=== PATIENT | male | born 1970 | race Caucasian/White ===

== ENCOUNTER 2019-06-21 07:23 | Observation (INO) | payer BC, SELFPAY ==
[2019-06-21] VITALS (8 sets, daily range): BP systolic 105–122; BP diastolic 68–74; PULSE 74–86; RESP 16–18; TEMP 36.7–37.3; O2SAT 93–98; BMI 22.2
--- NOTE | 2019-06-21 07:38 | CT_ITS ---
WS: [id number] CT abdomen pelvis w con* [id number] REASON FOR EXAM: RLQ pain IV CONTRAST ADMINISTERED: Omnipaque 300 95 mL. TOTAL EXAM DLP: 513.[address] scans at [facility] use at least one of these dose optimization techniques: automat ed exposure control; mA and/or kV adjustment per patient size (includes targeted exams where dose is matched to clinical indication); or iterative reconstruction. FINDINGS: The lower lungs and mediastinum were normal. The liver shows normal attenuation changes no abnormalities are seen. The gallbladder was normal no stones are noted. The spleen was normal. The stomach adrenal glands pancreas were normal. In the proximal right ureter there is evidence of a calcified density nonobstructing the ureter. Everardo ured 7.49 mm. The right kidney was normal there is a small benign cysts in the right periphery of the kidney. Aorta shows heavy arteriosclerotic changes. The iliac arteries show heavy arteriosclerotic findings. There is mild thickening of small bowel suggesting low-grade ileus findings. A calcified density is seen in the appendix area consistent with a fecalith of the appendix. There is no inflammatory changes surrounding the appendix. The urinary bladder was normal. Prostate shows concretions The anorectal area was normal. There is no inguinal hernias. CT/CT abdomen pelvis w con* [id number] IMPRESSION: Calcified density in the appendix suggesting a fecalith but no definite inflamm atory changes. A calcification is seen in the pelvis of the left kidney but no obstructive zulma nges. This measured 7.49 mm. And is consistent with a stone. Low-grade ileus changes mid abdomen.
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
[2019-06-21 08:01] LABS: Basophils # 0.1 10^3/uL (0.0-0.1); Basophils % 0.2 %; Hematocrit 38.5 % (42.0-52.0); Hemoglobin 13.1 g/dL (11.7-16.6); Lymphocytes % 4.1 %; Mean Corpuscular Hemoglobin 31.2 pg (28.0-34.0); Mean Corpuscular Volume 91.7 fL (80-94); Mean Platelet Volume 10.3 fL (7.4-10.4); Monocytes # 1.1 10^3/uL (0.2-0.9); Monocytes % 4.4 %; Neutrophils # 22.1 10^3/uL (1.8-7.7); Neutrophils % 90.8 %; Nucleated Red Blood Cells % 0 %; Platelet Count 219 10^3/cmm (130-400); Red Cell Distribution Width 13.3 % (12.1-15.1); White Blood Count 24.3 10^3/uL (4.0-10.0)
[2019-06-21 08:15] LABS: Alanine Aminotransferase 10 U/L (0-41); Albumin Level 4.4 g/dL (3.5-5.2); Alkaline Phosphatase 61 IU/L (40-130); Anion Gap 18.1 (5-19); Aspartate Amino Transferase 17 U/L (0-40); Blood Urea Nitrogen 14 mg/dL (6-20); Calcium 8.8 mg/dL (8.5-10.5); Carbon Dioxide 24 mmol/L (22-29); Chloride 97 mmol/L (98-107); Globulin 2.6 g/dL (1.3-4.6); Glomerular Filtration Rate 79.1 mL/min (90-130); Glucose 134 mg/dL (65-115); Lipase 11 U/L (13-60); Osmolality Calculated 278 mOsm/kg (285-295); Potassium 4.1 mmol/L (3.5-5.1); Sodium 135 mmol/L (136-145); Total Bilirubin 0.4 mg/dL (0.15-1.2)
[2019-06-21] MEDS: morphine 4 mg/mL SDV 1 mL IVP ×2 (08:19→10:44)
[2019-06-21] MEDS: ondansetron 2 mg/ML SDV 2 mL 4 MG IVP (08:20)
[2019-06-21] MEDS: sodium chloride 0.9% 1,000 ML 999 ML IV (08:21)
--- NOTE | 2019-06-21 08:25 | PC.NURSE ---
patient to ct
[2019-06-21] MEDS: iohexol 300 mg/mL 100 mL Btl IV (08:33)
[2019-06-21] MEDS: metroNIDAZOLE IV 500 MG/100 ML PREMIX 100 MG IV ×2 (09:05→16:42)
[2019-06-21 09:32] LABS: Bilirubin Urine Neg (NEGATIVE); Blood Urine Neg (Negative); Glucose Urine UA Norm (Normal); Ketones Urine 1+ (Negative); Leukocyte Esterase Urine Negative (Negative); Nitrate Urine Negative (Negative); Protein Urine Neg (Negative); Sulfosalicylic Acid Urine Negative (Negative); Urine Appearance Clear (CLEAR); Urine Color Yellow (Yellow); Urobilinogen Urine Norm (Negative); pH Urine 9 (5-7)
[2019-06-21 09:34] LABS: Bacteria Urine TRACE; Calcium Oxalate Crystals Urine 0-4 /hpf; Mucus Urine TRACE
[2019-06-21 09:35] LABS: Add Urine Culture? No
[2019-06-21] MEDS: ciprofloxacin 400 MG/200 ML PREMIX 200 MG IV ×2 (10:55→21:13)
--- NOTE | 2019-06-21 11:10 | PC.NURSE ---
dr dia in room for evaluation and patient will be admitted
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
[2019-06-21] MEDS: morphine 4 mg/mL SDV 1 mL 2 MG IVP (12:27)
[2019-06-21] MEDS: lactated ringers 1,000 ML 150 ML IV ×2 (12:28→21:13)
[2019-06-21 12:55] LABS: Basophils % 0.2 %; Hematocrit 36.2 % (42.0-52.0); Hemoglobin 12.2 g/dL (11.7-16.6); Lymphocytes # 0.8 10^3/uL (0.8-4.8); Lymphocytes % 4.4 %; Mean Corpuscular HGB Conc 33.7 g/dL (30.0-36.0); Mean Corpuscular Hemoglobin 31.3 pg (28.0-34.0); Mean Corpuscular Volume 92.8 fL (80-94); Monocytes # 0.7 10^3/uL (0.2-0.9); Neutrophils # 15.9 10^3/uL (1.8-7.7); Neutrophils % 90.8 %; Nucleated Red Blood Cells % 0 %; Platelet Count 188 10^3/cmm (130-400); Red Cell Distribution Width 13.5 % (12.1-15.1); White Blood Count 17.6 10^3/uL (4.0-10.0)
[2019-06-21] MEDS: HYDROcodone-acetaminophen 5-325 mg Tablet 1 TAB PO ×2 (16:41→22:42)
[2019-06-21] MEDS: famotidine 20 mg/2 mL INJ IVP (17:50)
[2019-06-22] VITALS: BP 105/66; PULSE 70; RESP 20; TEMP 36.8; O2SAT 97
[2019-06-22 04:00] VITALS: BP 121/80; PULSE 81; RESP 18; TEMP 36.7; O2SAT 94
[2019-06-22] MEDS: famotidine 20 mg/2 mL INJ IVP (04:02)
[2019-06-22] MEDS: metroNIDAZOLE IV 500 MG/100 ML PREMIX 100 MG IV ×2 (04:02→09:16)
[2019-06-22] MEDS: HYDROcodone-acetaminophen 5-325 mg Tablet 1 TAB PO (05:14)
[2019-06-22 06:03] LABS: Basophils % 0.3 %; Eosinophils # 0.2 10^3/uL (0.0-0.8); Eosinophils % 1.3 %; Hematocrit 40.2 % (42.0-52.0); Hemoglobin 13.2 g/dL (11.7-16.6); Lymphocytes # 0.7 10^3/uL (0.8-4.8); Lymphocytes % 5.1 %; Mean Corpuscular HGB Conc 32.8 g/dL (30.0-36.0); Mean Corpuscular Hemoglobin 30.8 pg (28.0-34.0); Mean Corpuscular Volume 93.7 fL (80-94); Mean Platelet Volume 10.1 fL (7.4-10.4); Monocytes # 0.8 10^3/uL (0.2-0.9); Monocytes % 5.9 %; Neutrophils # 11.7 10^3/uL (1.8-7.7); Nucleated Red Blood Cells % 0 %; Platelet Count 195 10^3/cmm (130-400); Red Blood Count 4.29 10^6/uL (4.1-5.3); Red Cell Distribution Width 13.6 % (12.1-15.1); White Blood Count 13.4 10^3/uL (4.0-10.0)
[2019-06-22] MEDS: lactated ringers 1,000 ML 150 ML IV (06:06)
[2019-06-22 06:22] LABS: Anion Gap 16.1 (5-19); Blood Urea Nitrogen 11 mg/dL (6-20); Calcium 9.5 mg/dL (8.5-10.5); Carbon Dioxide 25 mmol/L (22-29); Chloride 102 mmol/L (98-107); Glomerular Filtration Rate 79.1 mL/min (90-130); Glucose 107 mg/dL (65-115); Osmolality Calculated 285 mOsm/kg (285-295); Potassium 4.1 mmol/L (3.5-5.1); Sodium 139 mmol/L (136-145)
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
[2019-06-22 07:22] VITALS: BP 121/80; PULSE 81; RESP 18; TEMP 36.7; O2SAT 94
[2019-06-22 07:34] VITALS: BP 128/80; PULSE 74; RESP 18; TEMP 36.7; O2SAT 95
== END 2019-06-22 10:40 | disposition home or self-care (01) ==
LOC: ER 10:15 → MEDSURG 10:57
PROVIDERS: Physician Assistant; Admitting Provider Surgery; Emergency Provider Family Medicine; Family Provider Nurse Practitioner; PCP Nurse Practitioner; Visit Provider Surgery
DX: R10.9 Unspecified abdominal pain (principal); I10 Essential (primary) hypertension; F17.210 Nicotine dependence, cigarettes, uncomplicated
CPT/HCPCS: 12345; 36415; 74177; 80048; 80053; 81001; 83605; 83690; 85025; 87040; 96361; 96365; 96366; 96367; 96368; 96375; 99283; 99285; G0378; J0690; J0744; J2270; J2405; J3490; J7030; Q9967; S0030

== ENCOUNTER → 2020-09-15 11:52 | Outpatient (BNVA) | payer BC, SELFPAY | PROVIDERS: Family Provider Nurse Practitioner; PCP Nurse Practitioner | DX: R06.2 Wheezing (principal); R06.02 Shortness of breath; Z20.822 Contact with and (suspected) exposure to COVID-19 | CPT/HCPCS: 87635 ==

== ENCOUNTER 2020-12-13 08:51 | Inpatient (IN) | payer BC, SELFPAY ==
[2020-12-13] VITALS (11 sets, daily range): BP systolic 104–136; BP diastolic 71–94; PULSE 72–109; RESP 16–20; TEMP 36.2–36.9; O2SAT 95–98; BMI 17.2
--- NOTE | 2020-12-13 09:29 | XRR_ITS ---
PROCEDURE INFORMATION: Exam: XR Chest Exam date and time: 12/13/2020 9:29 AM Age: 49 years old Clinical indication: Cough and dyspnea; Patient HX: Nausea, cough, fatigue. Patient indicated that nipple piercings are not removalble. ; Additional info: Dyspnea/cough TECHNIQUE: Imaging protocol: XR of the chest. Views: 1 view. COMPARISON: CT abdomen pelvis w con* [id number] 06/21/2019 8:28 AM FINDINGS: Lungs: There is a noncalcified, irregular soft tissue opacity in the posteromedial left lower lobe. Both yolanda are prominent in size and this may be due to adenopathy though the mediastinum is not widened. Pleural spaces: Suspect trace left pleural effusion. No right pleural effusion. No pneumothorax. Heart/Mediastinum: The heart is not enlarged. Bones/joints: Old, healed left clavicular fracture. XR/XR chest 1V portable [id number] IMPRESSION: Left lower lobe soft tissue opacity. Differential diagnosis includes malignancy as well as a round pneumonia . Recommend CT CHEST with IV contrast. Radiation Dose CTDIVOL = (mGy): DLP = (mGy-cm)
--- NOTE | 2020-12-13 09:30 | ECG_ITS ---
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
[2020-12-13] MEDS: ondansetron 2 mg/ML SDV 2 mL 4 MG IVP ×2 (10:00→11:00)
[2020-12-13] MEDS: sodium chloride 0.9% 1,000 ML 999 ML IV ×2 (10:02→10:58)
--- NOTE | 2020-12-13 10:03 | CT_ITS ---
WS: [id number] CT CHEST, ABDOMEN, AND PELVIS TECHNIQUE: Contrast-enhanced CT of the chest, abdomen, and pelvis with coronal and sagittal reformatt ed images. CLINICAL INFORMATION: weightloss, dyspnea, abd pain COMPARISON: CT June 21, 2019 DLP: 1039.[address] scans at [facility] use at least one of these dose optimization techniques: automated e xposure control; mA and/or kV adjustment per patient size (includes targeted exams where dose is matc hed to clinical indication); or iterative reconstruction. CT CHEST: Partial collapse left lower lobe with diffuse narrowing of the left mainstem bronchus with circumfere ntial soft tissue mass compatible with neoplasm. Low-attenuation enhancing left hilar mass. Associate d bulky bilateral hilar lymphadenopathy. Anterior mediastinal lymphadenopathy. Narrowing of the left main pulmonary artery due to soft tissue mass. Small left pleural effusion. Small nonspecific semisol id opacities throughout the right lung may be infectious or inflammatory or neoplastic. Scattered haz y opacities within the left lower lobe and left upper lobe with interstitial thickening in the left l ower lobe. Scattered noncalcified nodules largest right lower lobe measuring 5 to 6 mm. Right middle lobe subpleural nodule measuring 6 mm. Numerous additional small solid nodules about the right hilum and along the fissures. CT ABDOMEN AND PELVIS: Hepatomegaly. Diffuse fatty infiltration of the liver. Numerous peripheral enhancing metastatic lesio ns the largest in the right hepatic lobe measuring 4 CM. Normal portal vein and splenic vein. Additio nal numerous low-attenuation peripheral enhancing lesions involving the pancreas also suspicious for metastatic disease. Peripheral enhancing left adrenal nodule measuring 2.1 cm suspicious for metastat ic disease. This is new since June 21, 2019. No hydronephrosis in either kidney. A few small renal cys ts. Additional low-attenuation right adrenal nodule measuring 2.3 CM. Normal caliber abdominal aorta. Upper abdominal and periaortic lymphadenopathy. Urine distended bladder. Normal sigmoid colon. A few diverticuli. No inguinal lymphadenopathy. Normal thoracic spine. Disc space narrowing lumbar spine wo rse at L4-[address] with end[address] degenerative changes. [address]/CT chest abd pel w con* IMPRESSION: 1. Large confluent low-attenuation left hilar mass with partial collapse left lower lobe compatible with left hilar neoplasm. 2. Bulky anterior mediastinal and bilateral hilar lymphadenopathy. 3. Additional small nodules and semisolid opacities throughout both lungs susp icious for metastatic disease. 4. Diffuse hepatic metastasis. 5. Bilateral adrenal metastasis. 6. Additional low-attenuation lesions in the pancreas suspicious for pancreati c metastasis. 7. Upper abdominal and periaortic lymphadenopathy. 8. Urine distended bladder. Notified Jamarcus Kevin DO at 12/13/2020 11:19 AM.
[2020-12-13 10:22] LABS: Basophils # 0.2 10^3/uL (0.0-0.1); Basophils % 1.3 %; Eosinophils % 0.1 %; Hematocrit 35.6 % (42.0-52.0); Hemoglobin 12.5 g/dL (11.7-16.6); Lymphocytes # 1.3 10^3/uL (0.8-4.8); Lymphocytes % 10.2 %; Mean Corpuscular HGB Conc 35.1 g/dL (30.0-36.0); Mean Corpuscular Hemoglobin 27.8 pg (28.0-34.0); Mean Corpuscular Volume 79.1 fl (80-94); Mean Platelet Volume 8.6 fL (7.4-10.4); Monocytes # 0.8 10^3/uL (0.2-0.9); Monocytes % 6.4 %; Neutrophils % 80.8 %; Nucleated Red Blood Cells % 0 %; Platelet Count 526 10^3/cmm (130-400); Red Cell Distribution Width 12.9 % (12.1-15.1)
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
[2020-12-13] MEDS: iohexol 300 mg/mL 100 mL Btl IV (10:31)
[2020-12-13 10:43] LABS: Alanine Aminotransferase 30 U/L (0-41); Albumin Level 3.7 g/dL (3.5-5.2); Alkaline Phosphatase 196 IU/L (40-130); Anion Gap 20.8 (5-19); Aspartate Amino Transferase 44 U/L (0-40); Blood Urea Nitrogen 6 mg/dL (6-20); Calcium 9.3 mg/dL (8.5-10.5); Carbon Dioxide 23 mmol/L (22-29); Chloride 73 mmol/L (98-107); Creatine Phosphokinase 138 U/L (39-308); Globulin 3.7 g/dL (1.3-4.6); Glomerular Filtration Rate 226.8 mL/min (90-130); Glucose 124 mg/dL (65-115); Osmolality Calculated 233 mOsm/kg (285-295); Potassium 4.8 mmol/L (3.5-5.1); Total Bilirubin 0.3 mg/dL (0.15-1.2); Total Protein 7.4 g/dL (6.6-8.7)
[2020-12-13 10:45] LABS: Sodium 112 mmol/L (136-145)
[2020-12-13 10:58] LABS: Lipase 769 U/L (13-60)
[2020-12-13] MEDS: morphine 4 mg/mL SDV 1 mL IVP ×3 (11:01→20:32)
[2020-12-13 12:22] LABS: Add Urine Microscopic? NO; Charge for UA Resulting for Rev
[2020-12-13 12:26] LABS: Glucose Urine UA Norm (Normal); Protein Urine Neg (Negative); Urine Appearance Clear (CLEAR); Urine Color Straw (Yellow); pH Urine 7 (5-7)
[2020-12-13 12:27] LABS: Bilirubin Urine Neg (Negative); Blood Urine Neg (Negative); Ketones Urine 1+ (Negative); Leukocyte Esterase Urine Negative (Negative); Nitrate Urine Negative (Negative); Urobilinogen Urine Norm (Negative)
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
--- NOTE | 2020-12-13 13:22 | PC.NURSE ---
Bladder scan completed at this time with >999mls of urine.
--- NOTE | 2020-12-13 13:26 | CT_ITS ---
WS: [id number] CT HEAD TECHNIQUE: Noncontrast CT of the head obtained from the skullbase to the vertex. CLINICAL INFORMATION: severe hyponatremia COMPARISON: None. DLP: 834.[address] scans at [facility] use at least one of these dose optimization techniques: automated e xposure control; mA and/or kV adjustment per patient size (includes targeted exams where dose is matc hed to clinical indication); or iterative reconstruction. FINDINGS: Low-attenuation change with slight increased soft tissue density in the right parietal lobe at the ve rtex. Findings are nonspecific but suspicious for underlying metastatic disease considering clinical history. This can be further evaluated with MRI. Normal ventricular system. No hydrocephalus. No othe r suspicious findings. Paranasal sinuses and mastoid air cells well aerated. CT/CT head wo con* [id number] IMPRESSION: 1. Low-attenuation change in the right parietal lobe at the vertex with increa sed soft tissue density suspicious for metastatic disease considering clinical history. This can be further evaluated with MRI without and with gadolinium 2. No hydrocephalus or midline shift. 3. No other significant findings. Notified Akbar Grant MD at 12/13/2020 2:25 PM.
--- NOTE | 2020-12-13 14:19 | PC.NURSE ---
Pt refused to have a catheter put in. Provider notified.
[2020-12-13 14:27] LABS: Cortisol Random 22.07 ug/dL (2.47-19.5); Thyroid Stimulating Hormone 4.23 uIU/mL (0.27-4.20)
[2020-12-13 14:49] LABS: Estmated Average Glucose 114; Hemoglobin A1C 5.6 % (4.0-6.0)
[2020-12-13] MEDS: sodium chloride 0.9% 1,000 ML 50 ML IV (15:41)
[2020-12-13 16:01] LABS: Hepatitis A Antibody IgM Non-Reactive (Nonreactive); Hepatitis B Core IgM Non-Reactive (Nonreactive); Hepatitis B Surface Antigen Non-Reactive (Nonreactive); Hepatitis C Virus Antibody Non-Reactive (Nonreactive)
[2020-12-13 16:39] LABS: Anion Gap 17.2 (5-19); Blood Urea Nitrogen 5 mg/dL (6-20); Calcium 8.4 mg/dL (8.5-10.5); Carbon Dioxide 23 mmol/L (22-29); Chloride 84 mmol/L (98-107); Glomerular Filtration Rate 226.8 mL/min (90-130); Glucose 90 mg/dL (65-115); Osmolality Calculated 247 mOsm/kg (285-295); Potassium 4.2 mmol/L (3.5-5.1); Sodium 120 mmol/L (136-145)
[2020-12-13 16:47] LABS: Potassium, Radom Urine 8 mmol/L; Urine Random Sodium 20 mmol/L
--- NOTE | 2020-12-13 16:50 | PC.NURSE ---
Emptied 1200 ml of urine from carroll.
[2020-12-13 16:56] LABS: Urine Random Chloride 18 mmol/L
[2020-12-13] MEDS: ALPRAZolam 0.5 mg Tablet PO (19:25)
[2020-12-13] MEDS: pantoprazole DR 40 mg Tablet PO (19:25)
[2020-12-13] MEDS: heparin 5,000 unit/mL INJ 1 mL 5000 UNIT SUBCUT (19:25)
[2020-12-13] MEDS: docusate sodium 100 mg Capsule PO (19:25)
[2020-12-13] MEDS: HYDROcodone-acetaminophen 5-325 mg Tablet 1 TAB PO ×2 (19:25→23:48)
--- NOTE | 2020-12-13 19:30 | PC.NURSE ---
Called and gave report to Marietta SAMANO
--- NOTE | 2020-12-13 21:02 | PC.NURSE ---
ADMIT NOTE Pt received to floor at 2041 via [employer]. walked to bed. Is alert and oriented. c/o pain all over but andrés in abdomen. Had pain meds in ER recently. IV patent and infusing without difficulty. House in place. Urine sl pink tinged. Says he has lost 40 lbs in last 3 months. Has been having SOB and prod cough of brown chunky sputum. Is aware of mass in lungs & liver. VS check done and oriented to room. Siderails padded and sx set up for sz precautions. RN to complete admission assessment
[2020-12-13] MEDS: lisinopril 5 mg Tablet PO (21:15)
[2020-12-13] MEDS: tizanidine 4 mg Tablet PO (21:15)
[2020-12-13] MEDS: mirtazapine 15 mg Tablet PO (21:15)
[2020-12-13 22:16] LABS: Blood Urea Nitrogen 6 mg/dL (6-20); Calcium 8.6 mg/dL (8.5-10.5); Carbon Dioxide 24 mmol/L (22-29); Chloride 87 mmol/L (98-107); Glomerular Filtration Rate 226.8 mL/min (90-130); Glucose 104 mg/dL (65-115); Osmolality Calculated 254 mOsm/kg (285-295); Sodium 123 mmol/L (136-145)
[2020-12-13] MEDS: albuterol 8 gm MDI 2 PUFF INHALATION (23:35)
[2020-12-14] VITALS (7 sets, daily range): BP systolic 103–119; BP diastolic 70–79; PULSE 98–111; RESP 16–18; TEMP 36.6–36.8; O2SAT 96–97
[2020-12-14] MEDS: morphine 4 mg/mL SDV 1 mL IVP ×2 (03:15→08:42)
--- NOTE | 2020-12-14 03:21 | PC.NURSE ---
prn pain medication admin per mar for primary nurse.
[2020-12-14] MEDS: HYDROcodone-acetaminophen 5-325 mg Tablet 1 TAB PO ×2 (05:44→12:39)
[2020-12-14 06:19] LABS: Basophils # 0.2 10^3/uL (0.0-0.1); Basophils % 1.2 %; Eosinophils % 0.2 %; Hematocrit 33.5 % (42.0-52.0); Hemoglobin 11.5 g/dL (11.7-16.6); Lymphocytes # 1.2 10^3/uL (0.8-4.8); Lymphocytes % 8.7 %; Mean Corpuscular HGB Conc 34.3 g/dL (30.0-36.0); Mean Corpuscular Volume 81.7 fl (80-94); Mean Platelet Volume 8.8 fL (7.4-10.4); Monocytes # 1.1 10^3/uL (0.2-0.9); Monocytes % 7.8 %; Neutrophils # 11.15 10^3/uL (1.8-7.7); Neutrophils % 80.5 %; Nucleated Red Blood Cells % 0 %; Platelet Count 519 10^3/cmm (130-400); Red Cell Distribution Width 13.2 % (12.1-15.1); White Blood Count 13.9 10^3/uL (4.0-10.0)
[2020-12-14] MEDS: heparin 5,000 unit/mL INJ 1 mL 5000 UNIT SUBCUT (06:24)
[2020-12-14 06:42] LABS: Alanine Aminotransferase 26 U/L (0-41); Albumin Level 3.2 g/dL (3.5-5.2); Alkaline Phosphatase 168 IU/L (40-130); Anion Gap 17.5 (5-19); Aspartate Amino Transferase 29 U/L (0-40); Blood Urea Nitrogen 5 mg/dL (6-20); Calcium 8.4 mg/dL (8.5-10.5); Carbon Dioxide 24 mmol/L (22-29); Chloride 86 mmol/L (98-107); Globulin 2.7 g/dL (1.3-4.6); Glomerular Filtration Rate 226.8 mL/min (90-130); Glucose 93 mg/dL (65-115); Osmolality Calculated 253 mOsm/kg (285-295); Potassium 4.5 mmol/L (3.5-5.1); Sodium 123 mmol/L (136-145); Total Bilirubin 0.2 mg/dL (0.15-1.2); Total Protein 5.9 g/dL (6.6-8.7)
--- NOTE | 2020-12-14 06:50 | PC.NURSE ---
SHIFT SUMMARY Has rested for intervals. Has received pain meds of po Hydrocodone and IV Morphine several times. c/o abd and back pain andrés but says is actually pretty much all over. Has had jello, juice and lemon port gamble soda to drink without c/o nausea. House draining well. Continues to talk of just wanting to be comfortable and says he knows he is dying.
--- NOTE | 2020-12-14 07:27 | PC.NURSE ---
AM NOTE SITTING UP ON SIDE OF BED - ATTEMPTED MRI SCREEN DUE TO SCHEDULED MRI TODAY - PT IS RELUCTANT TO REMOVE ALEIDA NIPPLE RINGS [facility] [facility] - PER THIS NURSE TO STEP OUT AND GIVE PT PRIVACY TO DECIDE TO PROCEED WITH TEST
[2020-12-14] MEDS: ALPRAZolam 0.5 mg Tablet PO ×2 (08:35→12:01)
[2020-12-14] MEDS: sodium chloride 0.9% 1,000 ML 75 ML IV (08:38)
[2020-12-14] MEDS: albuterol 8 gm MDI 2 PUFF INHALATION (09:08)
--- NOTE | 2020-12-14 10:37 | PC.NURSE ---
MRI PT TAKEN OFF FLOOR TO MRI VIA AMBULANCE CREW - PT AGAIN HESITANT TO REMOVE NIPPLE RINGS - CREW AWAITING PT TO REMOVE AND AWARE OF SITUATION
[2020-12-14] MEDS: gadobenate dimeglumine 20 mL vial IV (11:03)
--- NOTE | 2020-12-14 12:02 | PC.NURSE ---
RETURN TO ROOM PT RETURNED TO ROOM - C/O INCREASED ANXIETY - DR CHACON NOTIFIED - ORDER TO GIVE 1500 XANAX - DONE PER THIS NURSE
[2020-12-14] MEDS: dexamethasone 4 mg Tablet PO (12:36)
[2020-12-14 12:46] LABS: Anion Gap 15.5 (5-19); Blood Urea Nitrogen 5 mg/dL (6-20); Calcium 8.8 mg/dL (8.5-10.5); Carbon Dioxide 26 mmol/L (22-29); Chloride 85 mmol/L (98-107); Glomerular Filtration Rate 226.8 mL/min (90-130); Glucose 102 mg/dL (65-115); Osmolality Calculated 251 mOsm/kg (285-295); Potassium 4.5 mmol/L (3.5-5.1); Sodium 122 mmol/L (136-145)
--- NOTE | 2020-12-14 13:13 | P.DS_ITS ---
Discharge Providers Date of Admission: 12/13/20 12:15 Date of Discharge: December 14, 2020 Attending Provider at Admission: Akbar Grant MD Attending Provider at Discharge: Akbar Grant MD Primary Care Provider: Vladimir Núñez MD Diagnoses at Discharge Discharge Diagnosis (1) Hyponatremia: Status: Acute (2) Abdominal pain: Status: Resolved Permanent problem details: Likely related to his widespread metastatic disease noted in liver, pancreas Check hepatitis panel Pain control Clear liquid diet (3) Chronic back pain: Status: Acute (4) Hypertension: Status: Acute (5) GERD (gastroesophageal reflux disease): Status: Acute (6) Tobacco dependency: Status: Acute (7) COPD (chronic obstructive pulmonary disease): Status: Acute (8) Anxiety and depression: Status: Acute Reason for Visit Reason for Visit: NAUSEA/CHRONIC COUGH/SORENESS Hospital Course Hospital Course Toro is a 49-year-old white male who presented to the hospital with complaints of pain in his abdomen, nausea, as well as weight loss. He was found to have a sodium significantly low at 112. Imaging demonstrated left hilar mass, with what appeared to be significant metastatic load in his liver, pancreas, adrenal glands. CT head suggested tumor as well. He was given saline initially secondary to his appearance of dehydration and history of vomiting. Sodium corrected overnight by, and the following day he was placed on salt tablets. MRI head demonstrated multiple lesions consistent with metastasis, with some edema surrounding a 9 mm lesion right parietal vertex. Dexamethasone was initiated at 4 mg twice daily. The day the MRI came back, second day of hospital stay, patient related he was going home. He reported he felt better, had less abdominal pain. He was able to ambulate around the room. A House had been placed the night before secondary to urinary retention noted on initial CT scan on admission, at which time he had initially refused House. I discussed with him his widespread malignancy, including brain metastasis. I discussed his widespread malignancy with his as well. Patient reported that he would like to be discharged home, and would go against advice if he was not discharged. I talked with him about the risks and benefits of discharge including significant worsening. He reported that with his current diagnosis he was focused only on quality of life currently and that would be best at home. I initiated consultations for liver biopsy for diagnosis in the next 3 to 5 days as well as follow-up with oncology. He will also need to see his primary care provider for repeat sodium in 2 to 3 days. Fluid restriction was described, and prescription of salt tablets. Discussed dexamethasone which was added. Reviewed with him the reasons behind this as well. We will keep House catheter in at discharge, and have him follow-up with urology. Flomax initiated. This i s secondary to urinary retention. Overall prognosis is poor which I discussed with patient's as well as patient. Physical Exam Narrative: EXAM NARRATIVE: General exam is alert and oriented x3, conversive knowledgeable and demonstrates understanding Neck is supple Cardiovascular regular rate and rhythm Lungs clear but with diminished breath sounds left side Abdomen is soft. Slight tenderness epigastric area. Extremities no cyanosis clubbing or edema Urinary Catheter Management^: House: Cath Placed During This Visit: no Reason for Continuing Indwelling Catheter: Acute Urinary Retention or Obstruction Discharge Data Data Completed and Pending: Completed Studies During Hospitalization Category Date Time Status CT chest abd pel w con* Stat Cat Scan 12/13/20 10:[address] head wo con* [id number] Routine Cat Scan 12/13/20 13:26 Completed XR chest 1V vera ble [id number] Stat Exams 12/13/20 09:29 Completed MR head wo/w con [id number] Routine MRI 12/14/20 19:06 Completed Pending at discharge Category Date Time Status Osmolality Urine Routine Lab 12/13/20 15:30 Received Labs from last 24 hours 12/14/20 12/14/20 12/14/20 12:12 05:00 05:00 WBC 13.9 H RBC 4.10 Hgb 11.5 L Hct 33.5 L MCV 81.7 MCH 28.0 MCHC 34.3 RDW 13.2 Plt Count 519 H MPV 8.8 Neut % (Auto) 80.5 Lymph % (Auto) 8.7 [place] % (Auto) 7.8 Eos % (Auto) 0.2 Baso % (Auto) 1.2 Neut # (Auto) 11.15 H Lymph # (Auto) 1.2 [place] # (Auto) 1.1 H Eos # (Auto) 0.0 Baso # (Auto) 0.2 H Nucleated RBC % (a uto) 0 Nucleated RBCs # 0.0 Sodium 122 L 123 L Potassium 4.5 4.5 Chloride 85 L 86 L Carbon Dioxide 26 24 Anion Gap 15.5 17.5 BUN 5 L 5 L Creatinine 0.4 L 0.4 L GFR Calculation 226.8 H 226.8 H Glucose 102 93 Estimat Average Gl ucose Hemoglobin A1c Calculated Osmolal ity 251 L 253 L Calcium 8.8 8.4 L Total Bilirubin 0.2 AST 29 ALT 26 Alkaline Phosphata se 168 H Total Protein 5.9 L D Albumin 3.2 L Globulin 2.7 TSH Random Cortisol Urine Osmolality Ur Random Sodium Ur Random Potassiu m Ur Random Chloride Hepatitis A IgM Ab Hep Bs Antigen Hep B Core IgM Ab Hepatitis C Antibo dy 12/13/20 12/13/20 12/13/20 21:45 15:30 15:26 WBC RBC Hgb Hct MCV MCH MCHC RDW Plt Count MPV Neut % (Auto) Lymph % (Auto) [place] % (Auto) Eos % (Auto) Baso % (Auto) Neut # (Auto) Lymph # (Auto) [place] # (Auto) Eos # (Auto) Baso # (Auto) Nucleated RBC % (a uto) Nucleated RBCs # Sodium 123 L 120 L Potassium 5.0 4.2 Chloride 87 L 84 L Carbon Dioxide 24 23 Anion Gap 17.0 17.2 BUN 6 5 L Creatinine 0.4 L 0.4 L GFR Calculation 226.8 H 226.8 H Glucose 104 90 Estimat Average Gl ucose Hemoglobin A1c Calculated Osmolal ity 254 L 247 L Calcium 8.6 8.4 L Total Bilirubin AST ALT Alkaline Phosphata se Total Protein Albumin Globulin TSH Random Cortisol Urine Osmolality Pending Ur Random Sodium Ur Random Potassiu m Ur Random Chloride Hepatitis A IgM Ab Hep Bs Antigen Hep B Core IgM Ab Hepatitis C Antibo dy 12/13/20 12/13/20 12/13/20 11:57 10:10 10:10 WBC RBC Hgb Hct MCV MCH MCHC RDW Plt Count MPV Neut % (Auto) Lymph % (Auto) [place] % (Auto) Eos % (Auto) Baso % (Auto) Neut # (Auto) Lymph # (Auto) [place] # (Auto) Eos # (Auto) Baso # (Auto) Nucleated RBC % (a uto) Nucleated RBCs # Sodium Potassium Chloride Carbon Dioxide Anion Gap BUN Creatinine GFR Calculation Glucose Estimat Average Gl ucose Hemoglobin A1c Calculated Osmolal ity Calcium Total Bilirubin AST ALT Alkaline Phosphata se Total Protein Albumin Globulin TSH 4.23 H Random Cortisol 22.07 H Urine Osmolality Ur Random Sodium 20 Ur Random Potassiu m 8 Ur Random Chloride 18 Hepatitis A IgM Ab Non-reactive Hep Bs Antigen Non-reactive Hep B Core IgM Ab Non-reactive Hepatitis C Antibo dy Non-reactive 12/13/20 10:10 WBC RBC Hgb Hct MCV MCH MCHC RDW Plt Count MPV Neut % (Auto) Lymph % (Auto) [place] % (Auto) Eos % (Auto) Baso % (Auto) Neut # (Auto) Lymph # (Auto) [place] # (Auto) Eos # (Auto) Baso # (Auto) Nucleated RBC % (a uto) Nucleated RBCs # Sodium Potassium Chloride Carbon Dioxide Anion Gap BUN Creatinine GFR Calculation Glucose Estimat Average Gl ucose 114 Hemoglobin A1c 5.6 Calculated Osmolal ity Calcium Total Bilirubin AST ALT Alkaline Phosphata se Total Protein Albumin Globulin TSH Random Cortisol Urine Osmolality Ur Random Sodium Ur Random Potassiu m Ur Random Chloride Hepatitis A IgM Ab Hep Bs Antigen Hep B Core IgM Ab Hepatitis C Antibo dy Vitals: Last Vital Signs Temp 97.8 F 12/14/20 08:00 Pulse 98 12/14/20 09:09 Resp 18 12/14/20 09:09 BP 119/79 12/14/20 08:00 Pulse Ox 97 12/14/20 09:09 Discharge Plan Discharge Patient Disposition: Home Condition: Stable Prescriptions: New oxycodone 10 mg tablet 10 mg PO Q4H PRN (Reason: pain) Qty: 20 RF: 0 sennosides [Senna Lax] 8.6 mg Tablet 17.2 mg PO BEDTIME Qty: 30 RF: 0 ondansetron HCl [Zofran] 4 mg tablet 4 mg PO Q8H PRN (Reason: nausea and vomiting) Qty: 20 RF: 0 tamsulosin [Flomax] 0.4 mg capsule 0.4 mg PO DAILY Qty: 30 RF: 0 docusate sodium 100 mg Capsule 100 mg PO BID Qty: 60 RF: 0 pantoprazole 40 mg Tablet,Delayed Release (Dr/Ec) 40 mg PO BID Qty: 60 RF: 0 dexamethasone 4 mg Tablet 4 mg PO BID Qty: 60 RF: 0 sodium chloride 1 gram Tablet 1 g PO BID Qty: 60 RF: 0 Continued albuterol sulfate 2.5 mg /3 mL (0.083 %) solution for nebulization 2.5 mg inhalation QID PRN (Reason: shortness of breath or wheezing) Qty: 75 RF: 0 (DME) nebulizer accessories Kit See Rx Instructions .Route Qty: 1 RF: 0 (DME) compressor, for nebulizer Device See Rx Instructions .Route Qty: 1 RF: 0 tizanidine 4 mg tablet 4 mg PO DAILY PRN (Reason: muscle spasms) RF: 0 alprazolam 0.5 mg tablet 0.5 mg PO TID RF: 0 lisinopril 5 mg tablet 5 mg PO QPM RF: 0 mirtazapine 15 mg tablet 15 mg PO BEDTIME RF: 0 albuterol sulfate 90 mcg/actuation HFA aerosol inhaler 2 puff INHALATION QID PRN (Reason: Shortness Of Breath) RF: 0 Spiriva Respimat 1.25 mcg/actuation mist 2 puff INHALATION DAILY RF: 0 Changed fluoxetine 40 mg capsule 40 mg PO DAILY Qty: 0 RF: 0 Discontinued meloxicam 15 mg tablet 15 mg PO DAILY RF: 0 hydrocodone-acetaminophen 10-325 mg tablet 1 tab PO Q6H PRN (Reason: Pain) RF: 0 omeprazole 20 mg Tablet,Delayed Release (Dr/Ec) 20 mg PO DAILY RF: 0 Discharge Orders: Discharge Order (Routine); Ordered 12/14/20 Ordered By: Akbar Grant Other Ambulatory Orders: US biopsy liver [id number] (Routine) Timeframe: 20201216 Facility: [facility] - Location: Radiology Ordered By: Akbar Grant Referrals: Vladimir Núñez MD [Primary Care Provider] - 1-3 days (BMP on follow up) Joe Shields MD [Physician] - 7-10 days (urinary retention, cath left in) Marcial Morris MD [Hospitalist] - 12/17/20 8:00 am Discharge Diet: Regular Discharge Activity: Increase activity as tolerated Patient Instructions: Opioid Safety Activity Restrictions/Additional Instructions: [facility] WILL CALL WITH APPOINTMENT FOR JOHN SOUND FOR LIVER BIOPSY. Take all medicine as prescribed Keep all follow-ups Return for any concerns Leave House catheter in at discharge 1500 cc fluid restriction Discharge Attestations Time Spent in Discharge Care*: greater than 30 min Quality Metrics Clinical Quality Measures During this hospital stay, did patient experience: None Coding Level of Care Code Acute Chg FW DC note Diagnoses Hyponatremia E87.1 Abdominal pain R10.9 Chronic back pain M54.9; G89.29 Hypertension I10 GERD (gastroesophageal reflux disease) K21.9 Tobacco dependency F17.200 COPD (chronic obstructive pulmonary disease) J44.9 Anxiety and depression F41.9; F32.A
--- NOTE | 2020-12-14 14:44 | PC.NURSE ---
DISCHARGE INSTRUCTIONS DISCHARGE INSTRUCTIONS GIVEN PER Betsy JIMENEZ [employer] TO PT AND - BOTH VERBALIZED UNDERSTANDING - TAKEN VIA W /C TO PRIVATE CAR PER SELWYN GUIDRY
--- NOTE | 2020-12-14 19:06 | MR_ITS ---
WS: [id number] MRI HEAD WITH CONTRAST TECHNIQUE: Sagittal T1, T2 axial, T2 axial FLAIR, axial susceptibility weighted imaging, axial diffus ion weighted images, and coronal T2 images were obtained. Pre and post-T1 axial and post T1 coronal i mages. ADC and FSPGR images. CLINICAL INFORMATION: abnormal CT, possible malignancy COMPARISON: CT December 13, 2020 FINDINGS: Some images degraded by motion artifact. Numerous enhancing supra and infratentorial metastatic lesio ns the largest corresponds to the lesion visualized in the recent CT at the right parietal vertex germain suring 9 mm with moderate surrounding edema. Mild localized mass effect. No midline shift or hydrocep halus. Numerous additional subcentimeter enhancing metastatic lesions with a tiny amount of edema about the right superior frontal subcortical lesion measuring 4 mm. Remainder of the lesions demonstrate no sig nificant surrounding edema. Some of these lesions have a leptomeningeal appearance. Single lesion visualized in the right posterior fossa measuring 5 mm. Images in the cerebellum are de graded due to motion artifact. No restricted diffusion to suggest acute ischemia. No hemosiderin on susceptibly weighted images. Nor mal vascular flow voids at the skull base. No extra-axial fluid collections. Paranasal sinuses and ma stoid air cells are well aerated. Normal optic chiasm and pituitary infundibulum. Nonspecific heterog eneous bone marrow signal in the upper cervical spine. MR/MR head wo/w con [id number] IMPRESSION: 1. Numerous supra and infratentorial enhancing metastatic lesions the largest in the right parietal vertex measuring 9 mm. Moderate surrounding edema about t he right parietal lesion. Approximately 13-14 lesions visualized. 2. No significant mass effect or midline shift. 3. Single visualized right cerebellar lesion measuring 5 mm although images ar e somewhat degraded by motion. 4. No restricted diffusion to suggest acute ischemia. 5. No hemosiderin on susceptibly weighted images. Notified Akbar Grant MD at 12/14/2020 11:53 AM.
[2020-12-15 16:57] LABS: Osmolality Urine 177 mOsm/kg (50-1200)
== END 2020-12-14 14:46 | disposition home or self-care (01) | DRG 641 ==
LOC: ER 16:55 → MEDSURG 17:40
PROVIDERS: Admitting Provider Internal Medicine; Emergency Provider Family Medicine; PCP Family Medicine; Visit Provider Internal Medicine
DX: E87.1 Hypo-osmolality and hyponatremia (principal); C34.32 Malignant neoplasm of lower lobe, left bronchus or lung; C78.7 Secondary malignant neoplasm of liver and intrahepatic bile duct; C78.89 Secondary malignant neoplasm of other digestive organs; C79.72 Secondary malignant neoplasm of left adrenal gland; C79.71 Secondary malignant neoplasm of right adrenal gland; C79.31 Secondary malignant neoplasm of brain; F17.210 Nicotine dependence, cigarettes, uncomplicated; F41.8 Other specified anxiety disorders; G89.29 Other chronic pain; M54.9 Dorsalgia, unspecified; J44.9 Chronic obstructive pulmonary disease, unspecified; K21.9 Gastro-esophageal reflux disease without esophagitis; I10 Essential (primary) hypertension; E86.0 Dehydration; R33.9 Retention of urine, unspecified
CPT/HCPCS: 36415; 51702; 51798; 70450; 70553; 71045; 71260; 74177; 80048; 80053; 80074; 81003; 82436; 82533; 82550; 83036; 83690; 83935; 84133; 84300; 84443; 85025; 93005; 94640; 96361; 96372; 96374; 96375; 96376; 99285; A9577; J1644; J2270; J2405; J3535; J7030; J8540; Q9967

== ENCOUNTER 2020-12-15 09:04 | Outpatient (CLI) | payer BC, SELFPAY ==
--- NOTE | 2020-12-15 10:12 | N.ONRAD NP_ITS ---
Radiation Oncology Consultation Patient Name: Toro Hurd Date of : 1970 Date of Service: 12/15/2020 Attending Physician: Prasanth Goldman M.D. Toro Hurd was seen in consultation this morning at the request of Marcial Morris M.D. for consideration of palliative cranial radiotherapy for the management of a recently diagnosed probable lung cancer with brain metastases. He was initially evaluated at the [facility]'s Emergency Department on December 13, 2020 for dyspnea and abdominal pain. Initial labs revealed a sodium of 112 mmol/L. Upon admission, a thoracoabdominopelvic CT scan demonstrated narrowing of the left mainstem bronchus secondary to a circumferential soft tissue mass, left hilar mass, and mediastinal adenopathy. Metastatic lesions were identified in the right hepatic lobe and pancreas. A 2.3 cm right adrenal nodule was also described. An MRI of the brain (independently visualized in [facility]) described numerous enhancing supra and infratentorial lesions consistent with metastatic disease. The patient was evaluated for palliative cranial radiotherapy. Following a discussion concerning Mr. Hurd's MRI, an attempt at palliative cranial radiotherapy is warranted. A biopsy will be requested to determine histology. If pathology confirms a neuroendocrine tumor, chemotherapy will be considered prior to cranial radiotherapy. The potential toxicities of brain radiotherapy were reviewed. The patient has verbalized understanding would like to proceed as recommended. The patient???s medical treatment plan was discussed with Marcial Morris M.D. Signed by: Dr. Prasanth Goldman 12/15/2020 10:11:15 AM
== END 2020-12-15 09:05 | disposition home or self-care (01) ==
PROVIDERS: PCP Family Medicine; Visit Provider Radiology Radiation Oncology
DX: C34.02 Malignant neoplasm of left main bronchus (principal); C79.31 Secondary malignant neoplasm of brain; C78.7 Secondary malignant neoplasm of liver and intrahepatic bile duct; C78.89 Secondary malignant neoplasm of other digestive organs; Z79.899 Other long term (current) drug therapy
CPT/HCPCS: 99205

== ENCOUNTER 2020-12-16 12:59 | Emergency (ER) | payer BC, SELFPAY ==
[2020-12-16 13:09] VITALS: BP 139/96; PULSE 110; RESP 14; TEMP 36.9; O2SAT 97; BMI 16.2
--- NOTE | 2020-12-16 13:09 | CT_ITS ---
WS: [id number] CT HEAD TECHNIQUE: Noncontrast CT of the head obtained from the skullbase to the vertex. CLINICAL INFORMATION: lung CA w mets COMPARISON: CT December 13, 2020 and MRI December 14, 2020 DLP: 856.[address] scans at [facility] use at least one of these dose optimization techniques: automated e xposure control; mA and/or kV adjustment per patient size (includes targeted exams where dose is matc hed to clinical indication); or iterative reconstruction. FINDINGS: No evidence of intracranial hemorrhage. Ventricular system and basal cisterns are patent. Stable righ t parietal metastatic lesion with mild subcortical edema. No significant mass effect or midline shift . No hydrocephalus. The other numerous described metastatic lesions on the recent MRI not well seen o n CT. No extra-axial fluid collections. Paranasal sinuses and mastoid air cells are well aerated. .Normal visualized soft tissues. CT/CT head wo con* [id number] IMPRESSION: 1. No evidence of intracranial hemorrhage 2. Stable metastatic lesion at the right parietal vertex with mild subcortical edema. This is unchanged from previous. 3. The numerous smaller metastatic lesions seen on the recent MRI not well vis ualized on CT. 4. No hydrocephalus or significant mass effect. No midline shift. 5. No significant interval changes Notified Jamarcus Kevin DO at 12/16/2020 1:39 PM.
--- NOTE | 2020-12-16 13:18 | XR_ITS ---
WS: [id number] Portable AP upright chest, 12/16/2020 Clinical Data: dyspnea/cough Comparison: Portable chest, 12/13/2020. Findings: There is a left hilar mass which is less conspicuous than on the prior film. There is emphy sematous change at the surface of the left diaphragm. There is opacity behind the heart which may rep resent atelectasis. No pneumothorax is seen. The heart size is normal. There are decorative items ove r both areola. Monitor leads are on the chest wall. The pulmonary vascularity is not increased. No pn eumonia or pneumothorax is seen. XR/XR chest 1V portable [id number] Impression: 1. Left hilar mass which is less conspicuous than 3 days ago. 2. Emphysematous change in left lower lobe.
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
[2020-12-16] MEDS: naloxone 0.4 mg/ml SDV IVP (13:21)
[2020-12-16 13:28] LABS: Basophils # 0.2 10^3/uL (0.0-0.1); Eosinophils # 0.1 10^3/uL (0.0-0.8); Eosinophils % 0.4 %; Hematocrit 34.6 % (42.0-52.0); Hemoglobin 11.9 g/dL (11.7-16.6); Lymphocytes # 1.1 10^3/uL (0.8-4.8); Lymphocytes % 6.8 %; Mean Corpuscular HGB Conc 34.4 g/dL (30.0-36.0); Mean Corpuscular Hemoglobin 27.4 pg (28.0-34.0); Mean Corpuscular Volume 79.7 fl (80-94); Mean Platelet Volume 8.6 fL (7.4-10.4); Monocytes # 0.5 10^3/uL (0.2-0.9); Monocytes % 2.9 %; Neutrophils # 13.37 10^3/uL (1.8-7.7); Neutrophils % 85.5 %; Nucleated Red Blood Cells % 0 %; Platelet Count 536 10^3/cmm (130-400); Red Blood Count 4.34 10^6/uL (4.1-5.3); Red Cell Distribution Width 13.3 % (12.1-15.1); White Blood Count 15.7 10^3/uL (4.0-10.0)
[2020-12-16 13:49] LABS: Alanine Aminotransferase 21 U/L (0-41); Alkaline Phosphatase 189 IU/L (40-130); Anion Gap 22.8 (5-19); Aspartate Amino Transferase 23 U/L (0-40); Blood Urea Nitrogen 9 mg/dL (6-20); Carbon Dioxide 24 mmol/L (22-29); Chloride 84 mmol/L (98-107); Creatinine Clr Calc Pharmacy 152.4569; Globulin 2.9 g/dL (1.3-4.6); Glomerular Filtration Rate 225.9 mL/min (90-130); Glucose 124 mg/dL (65-115); Osmolality Calculated 262 mOsm/kg (285-295); Potassium 4.8 mmol/L (3.5-5.1); Sodium 126 mmol/L (136-145); Total Bilirubin 0.2 mg/dL (0.15-1.2); Total Protein 6.9 g/dL (6.6-8.7)
== END 2020-12-16 14:40 | disposition home or self-care (01) ==
PROVIDERS: Emergency Provider Family Medicine; PCP Family Medicine
DX: R91.8 Other nonspecific abnormal finding of lung field (principal); J44.9 Chronic obstructive pulmonary disease, unspecified; F05 Delirium due to known physiological condition; F17.210 Nicotine dependence, cigarettes, uncomplicated
CPT/HCPCS: 70450; 71045; 80053; 85025; 96374; 99283; J2310

== ENCOUNTER 2020-12-17 08:10 | Outpatient (CLI) | payer BC, SELFPAY ==
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
== END 2020-12-17 08:11 | disposition home or self-care (01) ==
PROVIDERS: PCP Family Medicine; Visit Provider Internal Medicine Medical Oncology
DX: C34.02 Malignant neoplasm of left main bronchus (principal); C78.01 Secondary malignant neoplasm of right lung; C78.7 Secondary malignant neoplasm of liver and intrahepatic bile duct; C79.71 Secondary malignant neoplasm of right adrenal gland; C79.72 Secondary malignant neoplasm of left adrenal gland; C79.31 Secondary malignant neoplasm of brain; C77.2 Secondary and unspecified malignant neoplasm of intra-abdominal lymph nodes; E87.1 Hypo-osmolality and hyponatremia; J44.9 Chronic obstructive pulmonary disease, unspecified; I10 Essential (primary) hypertension; M54.50 Low back pain, unspecified; G89.29 Other chronic pain; F41.9 Anxiety disorder, unspecified; F32.9 Major depressive disorder, single episode, unspecified; Z79.899 Other long term (current) drug therapy
CPT/HCPCS: 96365; 99205; J1100

== ENCOUNTER 2020-12-28 06:52 | Day surgery (SDC) | payer BC, SELFPAY ==
[2020-12-22 13:44] VITALS: BMI 15.5
[2020-12-28] VITALS (22 sets, daily range): BP systolic 111–136; BP diastolic 83–91; PULSE 95–106; RESP 18–97; TEMP 36.1–37.2; O2SAT 94–99
[2020-12-28 07:54] LABS: INR 1.09 (0.8-1.2)
--- NOTE | 2020-12-28 08:00 | US_ITS ---
WS: [id number] INDICATION: Ultrasound-guided liver biopsy TECHNIQUE: The procedure including risks, benefits and complications were discussed with the patient who agreed to proceed. Timeout was performed. Using sterile technique patient was prepped and draped in usual sterile fashion. Conscious sedation was administered. After 1% lidocaine, using ultrasound g uidance, the most accessible right hepatic lesion was selected adjacent to the gallbladder. Multiple passes through the metastatic lesion performed using 18-gauge coaxial biopsy device. No immediate ghazala lications. Patient left the department in stable condition approximately 2 hours postprocedure. US/US biopsy liver [id number] IMPRESSION: Uncomplicated ultrasound-guided hepatic lesion biopsy. Pathology is pending.
[2020-12-28] MEDS: sodium chloride 0.9% 1,000 ML 30 ML IV (08:04)
[2020-12-28] MEDS: midazolam 1 mg/mL INJ 2 mL 2 MG IVP (09:18)
[2020-12-28] MEDS: fentaNYL 50 mcg/mL INJ 2mL IVP (09:18)
[2020-12-28] MEDS: fentaNYL 50 mcg/mL INJ 2mL 25 MCG IVP ×2 (09:38→10:29)
[2020-12-28] MEDS: midazolam 1 mg/mL INJ 2 mL IVP (09:38)
--- NOTE | 2020-12-28 10:16 | PC.NURSE ---
1000 incision site clean and dry, bandage intact
--- NOTE | 2020-12-28 10:20 | PC.NURSE ---
1010 patient c/o generalized pain, rates 8, scale 0-10. Asking for pain medicaiton. Jennie Campos RN, contacted Dr Gregg, order received for Fentanyl 25mg IVP x1
--- NOTE | 2020-12-28 10:44 | PC.NURSE ---
1030 incision site and bandage clean, dry and intact. No signs of bleeding.
--- NOTE | 2020-12-28 10:54 | PC.NURSE ---
1050 patient removed O2. O2 sats 94%. RR 22. No distress noted.
--- NOTE | 2020-12-28 11:05 | PC.NURSE ---
1100 incision site and bandage clean dry and intact. No signs of bleeding.
--- NOTE | 2020-12-28 11:12 | PC.NURSE ---
1110 patient ambulated to bathroom.
--- NOTE | 2020-12-28 11:27 | PC.NURSE ---
1127 patient pulled out IV. Catheter intact. pressure held and bandage placed.
== END 2020-12-28 11:35 | disposition home or self-care (01) ==
PROVIDERS: Radiology Neuroradiology; PCP Family Medicine; Visit Provider Internal Medicine
DX: C22.7 Other specified carcinomas of liver (principal); J44.9 Chronic obstructive pulmonary disease, unspecified; K21.9 Gastro-esophageal reflux disease without esophagitis; I10 Essential (primary) hypertension; F17.200 Nicotine dependence, unspecified, uncomplicated; Z88.2 Allergy status to sulfonamides
CPT/HCPCS: 36415; 47000; 76942; 85610; 88307; 96360; 96361; 96374; 96375; J2250; J3010; J7030

== ENCOUNTER 2020-12-29 12:19 | Emergency (ER) | payer BC, SELFPAY ==
--- NOTE | 2020-12-29 12:22 | XR_ITS ---
WS: [id number] Exam: XR chest 1V portable [id number] Date/Time of Exam: 12/29/2020 12:26 PM Reason For Exam: cp Comparison 12/16/2020. Large left hilar mass noted. There is diffuse infiltrate throughout the left lung which is a change s deo prior study. Increasing left basal pleural effusion is noted. Heart size is within normal limits . There is widening of the mediastinum that may indicate lymphadenopathy. Chronic interstitial change s in the right lung. No pneumothorax. XR/XR chest 1V portable [id number] IMPRESSION: 1. Large left hilar mass. 2. Diffuse infiltrates throughout the left lung suggesting pneumonia. 3. Increasing left basal pleural effusion. There is probably some atelectasis o f the left lower lobe also. 4. There appears to be widening of the superior mediastinum which might indicat e lymphadenopathy.
[2020-12-29 12:23] VITALS: BP 103/72; PULSE 104; RESP 17; TEMP 36.8; O2SAT 96; BMI 15.2
[2020-12-29 12:52] VITALS: BP 110/76; PULSE 104; RESP 18; O2SAT 94
[2020-12-29 13:28] LABS: Hematocrit 33.7 % (42.0-52.0); Hemoglobin 11.3 g/dL (11.7-16.6); Mean Corpuscular HGB Conc 33.5 g/dL (30.0-36.0); Mean Corpuscular Hemoglobin 26.8 pg (28.0-34.0); Platelet Count 339 10^3/cmm (130-400); Red Blood Count 4.21 10^6/uL (4.1-5.3); Red Cell Distribution Width 14.5 % (12.1-15.1); White Blood Count 24.6 10^3/uL (4.0-10.0)
[2020-12-29 13:43] LABS: Troponin(5th) Baseline 7 ng/L (0-15)
[2020-12-29 13:44] LABS: Alanine Aminotransferase 25 U/L (0-41); Albumin Level 3.1 g/dL (3.5-5.2); Alkaline Phosphatase 268 IU/L (40-130); Anion Gap 21.7 (5-19); Aspartate Amino Transferase 39 U/L (0-40); Blood Urea Nitrogen 10 mg/dL (6-20); Calcium 8.3 mg/dL (8.5-10.5); Carbon Dioxide 24 mmol/L (22-29); Chloride 82 mmol/L (98-107); Globulin 3.2 g/dL (1.3-4.6); Glomerular Filtration Rate 225.9 mL/min (90-130); Glucose 95 mg/dL (65-115); Osmolality Calculated 255 mOsm/kg (285-295); Potassium 4.7 mmol/L (3.5-5.1); Sodium 123 mmol/L (136-145); Total Bilirubin 0.2 mg/dL (0.15-1.2); Total Protein 6.3 g/dL (6.6-8.7)
[2020-12-29 14:05] LABS: Slide Review Slide Review Perform
[2020-12-29 14:07] LABS: Band Neutrophils Absolute 3.7 10^3/cmm (0.0-1.2); Lymphocytes 5 %; Monocytes Absolute 0.7 10^3/cmm (0.1-0.6); Segmented Neutrophils 73 %; Total Cells Counted 100 (0-100)
[2020-12-29 14:08] LABS: Absolute Neutrophil 21.6 10^3/cmm (1.4-6.5); Eosinophils 0 %; Hypochromasia 1+; Lymphocytes Absolute 1.2 10^3/cmm (1.2-3.4); Platelet Estimate Normal (Normal)
--- NOTE | 2020-12-29 14:22 | ECG_ITS ---
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 Measurements Intervals [place] Rate: 102 P: 73 NE: 127 QRS: 72 QRSD: 82 T: 73 QT: 330 QTc: 431 Interpretive Statements SINUS TACHYCARDIA POSSIBLE LEFT ATRIAL ENLARGEMENT [-0.1mV P-WAVE IN V1/V2] ABNORMAL RHYTHM ECG Compared to ECG 12/13/2020 10:44:21 Sinus rhythm no longer present Electronically Signed On 12-29-2020 22:52:[address] SQL DEVELOPER by Ap Bright M.D. [id number]
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
[2020-12-29] MEDS: ondansetron 2 mg/ML SDV 2 mL 4 MG IVP (15:52)
[2020-12-29] MEDS: sodium chloride 0.9% 1,000 ML 999 ML IV (15:52)
[2020-12-29] MEDS: HYDROmorphone 1 mg/mL INJ 1 mL IVP (15:52)
[2020-12-29 16:15] LABS: Troponin 5 2HR 7.38 ng/L (0-15); Troponin 5 2HR Delta 0.38 ABS# (0-10)
[2020-12-29 16:38] VITALS: BP 117/75; PULSE 78; RESP 18; O2SAT 98
== END 2020-12-29 16:39 | disposition home or self-care (01) ==
PROVIDERS: Emergency Provider Emergency Medicine; PCP Family Medicine
DX: R53.1 Weakness (principal); R91.8 Other nonspecific abnormal finding of lung field; J44.9 Chronic obstructive pulmonary disease, unspecified; I10 Essential (primary) hypertension; F17.210 Nicotine dependence, cigarettes, uncomplicated
CPT/HCPCS: 36415; 71045; 80053; 84484; 85007; 85025; 93005; 96361; 96374; 96375; 99283; J1170; J2405; J7030